=== PATIENT | male | born 1975 | race Caucasian/White ===

== ENCOUNTER 2019-04-18 06:41 | Emergency (ER) | payer SELFPAY ==
[~2019-04-18] VITALS: Ht 167.6 cm; Wt 84.4 kg
[2019-04-18 06:48] VITALS: Ht 167.6 cm; Wt 84.4 kg
[2019-04-18 09:39] VITALS: BP 107/74
== END 2019-04-18 09:39 | disposition home or self-care (01) ==
LOC: ED 06:41
DX: B34.9 Viral infection, unspecified (principal); R19.7 Diarrhea, unspecified
CPT/HCPCS: 87804; J1885; Q0162